=== PATIENT | male | born 1990 | race Caucasian/White ===

== ENCOUNTER 2019-03-24 01:36 | Emergency (ER) | payer SELFPAY ==
[~2019-03-24] VITALS: Ht 165.1 cm; Wt 94.0 kg
[2019-03-24] MEDS ORDERED: KETOROLAC 15MG/ML VIAL IM ONE (02:30)
[2019-03-24] MEDS ORDERED: ACETAMINOPHEN 325MG TABLET PO ONE (03:15)
[2019-03-24 03:43] VITALS: BP 138/75
== END 2019-03-24 03:44 | disposition home or self-care (01) ==
LOC: ER 01:36
DX: J02.9 Acute pharyngitis, unspecified (principal)
CPT/HCPCS: 87070; 87430; 87804; 96372; 99283; J1885